=== PATIENT | female | born 1970 | race Caucasian/White ===

== ENCOUNTER → 2016-10-18 | Outpatient (CLI) | payer BC ==
[~2016-10-18] MED LIST: ERGO1CAP35 PO; LEVO137T3 PO
== END | disposition home or self-care (01) ==
LOC: C.PATH 08:53
PROVIDERS: ATTEND Obstetrics & Gynecology
DX: N63 Unspecified lump in breast (principal)

== ENCOUNTER → 2016-11-15 | Outpatient (CLI) | payer BC ==
--- NOTE | 2016-11-15 15:32 | MAMMOGRAPHY REPORT ---
ULTRASOUND OF RIGHT BREAST: 11/15/2016 CLINICAL HISTORY: The patient has a history of bilateral mastectomy with ASAEL flap as well as implan t reconstruction. The patient reports a new palpable lump in the right upper outer quadrant since . She underwent a fine-needle aspiration by the pathology department, the pathology showed n o malignant cells, and showed histiocytes and acellular debris which is nonspecific but could repres ent fat necrosis or cyst contents. The patient reports that the lump resolved after aspiration but then returned and is now even larger in size. COMPARISON: Comparison is made to exams dated: 09/09/2015 ultrasound, 03/09/2015 ultrasound, 05/05/2012 mammogram, 05/06/2013 mammogram, 05/02/2011 mammogram, and 05/01/2010 mammogram - [facility]. TECHNIQUE: Real-time targeted ultrasound of the right breast was performed. FINDINGS: Targeted ultrasound was performed of the area of the palpable lump pointed out by the patient, in th e right breast at approximately 11:00, 8 cm from the approximate prior location of the nipple based on the reconstructed breast. At the site of the palpable lump there is a round hypoechoic circumscr ibed 7 x 6 x 7 mm mass, as well as an adjacent smaller hypoechoic circumscribed round mass which tatiana sures 2 x 2 mm; these likely represent oil cysts. There is hyperechogenicity of the surrounding fat lobules. In the right breast at 11:00, 9 cm from the nipple, there is a round circumscribed anecho ic mass which measures 2 x 2 mm, likely representing an oil cyst, also with hyperechogenicity of the surrounding fat. Findings are benign and compatible with fat necrosis with multiple oil cysts. No suspicious solid masses are evident. IMPRESSION: ACR BI-RADS CATEGORY 2: BENIGN Findings compatible with fat necrosis with multiple oil cysts at the site of the palpable right uppe r outer quadrant lump. The largest oil cyst measures 7 mm in this region. There is no sonographic evidence of malignancy. Recommend clinical follow-up. The patient was verbally notified of the results. Gladys Yepez M.D. /:11/15/2016 13:46:38 Grounds Worker: Ayana FLORES(Lea)(Janel), [facility] letter sent: Normal 1/2 BI-RADS Code: ACR BI-RADS Category 2: Benign
== END | disposition home or self-care (01) ==
LOC: C.MAMM 12:48
PROVIDERS: ATTEND Obstetrics & Gynecology
DX: N64.1 Fat necrosis of breast (principal); N60.01 Solitary cyst of right breast; Z85.3 Personal history of malignant neoplasm of breast; Z90.13 Acquired absence of bilateral breasts and nipples; Z08 Encounter for follow-up examination after completed treatment for malignant neoplasm

== ENCOUNTER → 2017-09-24 | Outpatient (CLI) | payer BC | END | disposition home or self-care (01) | LOC: C.PAPS 11:26 | PROVIDERS: ATTEND Obstetrics & Gynecology | DX: Z01.419 Encounter for gynecological examination (general) (routine) without abnormal findings (principal) ==

== ENCOUNTER → 2017-09-27 | Outpatient (CLI) | payer BC ==
--- NOTE | 2017-09-27 15:34 | MAMMOGRAPHY REPORT ---
ULTRASOUND OF BOTH BREASTS: 09/27/2017 CLINICAL HISTORY: History of bilateral mastectomy with the ASAEL flap as well as implant reconstructio n. The patient reports a persistent palpable lump in the right upper outer quadrant. She also repor ts that her provider felt a new left breast lump during a physical exam. COMPARISON: Comparison is made to exams dated: 03/09/2015 ultrasound, 09/09/2015 ultrasound, 11/15/2016 u ltrasound, 05/06/2013 mammogram, 05/05/2012 mammogram, and 05/02/2011 mammogram - [facility]. TECHNIQUE: Real-time targeted ultrasound of both breasts was performed. FINDINGS: Real-time, high resolution targeted ultrasound was performed of the area of the persistent palpable lump pointed out by the patient, in the right reconstructed breast at approximately 11:00, 8 cm from the nipple. At the site of the palpable lump there is a round circumscribed hypoechoic mas s with posterior acoustic shadowing, measuring 6 x 6 x 6 mm. An adjacent round circumscribed hypoech oic 2 x 2 mm mass is also noted. Surrounding ill-defined hyperechoic tissue is seen. Both masses ar e not significantly changed compared to the November 2016 exam and are benign and compatible with oil cyst related to fat necrosis. Another round anechoic circumscribed benign appearing 4 x 4 mm mass i s seen within the right breast at 1:00, approximately 9 cm from the nipple, also consistent with a be nign oil cyst and stable compared to the September 2015 exam. Targeted ultrasound was performed of the new palpable lump pointed out by the patient, in the left re constructed breast at approximately 9:00, 8 cm from the nipple. At this site there is ill-defined mi xed echogenicity tissue which is hypoechoic centrally and hyperechoic peripherally, with total extent of the finding measuring 10 x 12 x 7 mm. Given the patient's history and given the mixed echogenici ty appearance on ultrasound, the finding likely represents fat necrosis, however, the finding is nons pecific on imaging and malignancy cannot entirely be excluded. Consider fine-needle aspiration for f urther evaluation. IMPRESSION: ACR BI-RADS CATEGORY 4: SUSPICIOUS - FOLLOW-UP RECOMMENDED 1. Two adjacent circumscribed masses in the right 11:00 breast at the site of the palpable lump, one measuring 6 mm and the other measuring 2 mm. The masses are stable compared to the November 2016 ex am and are benign and compatible with oil cysts related to fat necrosis. 2. Ill-defined mixed echogenicity tissue at the site of the new palpable lump in the left reconstruc oralia breast at 9:00. Given the patient's history and given the mixed echogenicity appearance on ultra sound, the finding likely represents fat necrosis, however, the finding is nonspecific on imaging and malignancy cannot entirely be excluded. Consider fine-needle aspiration by the pathology department for further evaluation. If this is not performed, then clinical or imaging follow-up should be perf ormed. A phone call was made to the physician's office to confirm faxed results were received. The patient was verbally notified of the results. Gladys Yepez M.D. ah/:09/27/2017 10:55:32 Attending Technologist: Curtis HURD)(Janel), [facility] [employer] Finisher Helper: Gladys Yepez MD, [facility] letter sent: Abnormal 4/5 BI-RADS Code: ACR BI-RADS Category 4: Suspicious
== END | disposition home or self-care (01) ==
LOC: C.MAMM 09:42
PROVIDERS: ATTEND Obstetrics & Gynecology
DX: N63.11 Unspecified lump in the right breast, upper outer quadrant (principal); Z90.11 Acquired absence of right breast and nipple; Z90.12 Acquired absence of left breast and nipple; N63.20 Unspecified lump in the left breast, unspecified quadrant

== ENCOUNTER → 2017-10-29 | Outpatient (CLI) | payer OTHER | END | disposition home or self-care (01) | LOC: C.MAMM 09:50 | PROVIDERS: ATTEND Nurse Practitioner Family | DX: M85.80 Other specified disorders of bone density and structure, unspecified site (principal) ==

== ENCOUNTER → 2018-01-31 | Outpatient (CLI) | payer OTHER ==
--- NOTE | 2018-01-31 16:38 | DIAGNOSTIC IMAGING REPORT ---
L VENOUS DOPP LOWER EXT UNILAT CLINICAL HISTORY: CALF PAIN pain. Edema. TECHNIQUE: Venous Doppler COMPARISON STUDY: None FINDINGS: Normal study IMPRESSION: Normal study The above report was generated using voice recognition software. It may contain grammatical, syntax or spelling errors. Electronically signed by: Aneesh Gutierrez M.D. 01/31/2018 4:37 PM Dictated Date/Time: 01/31/2018 4:37 PM
== END | disposition home or self-care (01) ==
LOC: C.ULTR 15:37
PROVIDERS: ATTEND Nurse Practitioner Family
DX: M79.605 Pain in left leg (principal)

== ENCOUNTER 2022-04-25 15:36 | Inpatient (IN) ==
--- NOTE | 2022-04-25 15:44 | ED Triage Note ---
Date of Service April 25, 2022 History of Present Illness This patient was briefly evaluated while in triage. An abbreviated physical exam was performed. This patient is a 52-year-old Female who presents to the ED for evaluation of daily panic attacks for the past 5 weeks. She has seen her PCP multiple times and was started on Sertraline and Ativan without relief. Physical Exam VITALS: Vitals are noted on the nurse's note and reviewed by myself. GENERAL: This is a 52-year-old female, anxious appearing and jittery. SKIN: The skin was without rashes. LUNGS: No increased work of breathing. NEURO: Patient was alert and oriented to person place and time. Initial orders for labs and / or imaging were placed and patient was placed in the waiting area until a bed is available. Please see further documentation for the full ED course.
--- NOTE | 2022-04-25 16:08 | Emergency Department Note ---
Impression & Plan Mood disorder, Anxiety ED Provider Note NAME: KYREE CLEMENTS AGE: 52 SEX: F : 1970 ARRIVES VIA: Walk-In INFORMANT: Patient ED PROVIDER(S): Jan Wilde DO CHIEF COMPLAINT: anxiety HPI: Patient is a 52-year-old female with a history of hypothyroidism, g eneralized anxiety disorder patch carcinoma of the nipple who presents to the ER for persistent panic attacks. This started on March 09 when she was getting ready to go to a family libertarian where there is a lot of family stressors. She eventually did not go but they have kindly continued throughout. She has been prescribed sertraline and Ativan but she does not like to take medications. When she does take the Ativan she does believe it helps out but it does make her tired. She notes that these panic attacks include racing thoughts as well as impending doom and pacing around the room. She does not get any chest pain or shortness of breath. No belly pain nausea vomiting or diarrhea. She does sometimes get paresthesias when she is very anxious. She denies any weakness or numbness in the arms or legs. No other exacerbating or remitting factors. She denies any auditory visual hallucinations. She has no passive or active suicidal thoughts. She notes she would never kill her self but she does want this to end and she wants to come up with a resolution or solution to this ROS: See above HPI for pertinent positives & negatives. A total of 10 systems reviewed and were otherwise negative. PAST MEDICAL HISTORY:See Below PAST SURGICAL HISTORY:See Below FAMILY HISTORY:See Below SOCIAL HISTORY:See Below HOME MEDICATIONS:See Below ALLERGIES:See Below VITALS:See Below PHYSICAL EXAMINATION: GENERAL: Sitting up in bed, alert, well appearing, well nourished, no distress, non-toxic EYE EXAM: normal conjunctiva. OROPHARYNX: no exudate, no erythema, lips, buccal mucosa, and tongue normal and mucous membranes are moist LUNGS: Clear to auscultation. Normal chest wall mechanics HEART: no murmurs, S1 normal and S2 normal ABDOMEN: abdomen soft, non-tender, normo-active bowel sounds, no masses, no rebound or guarding. UPPER EXTREMITIES: upper extremities are grossly normal. LOWER EXTREMITIES: No pitting edema. NEURO EXAM: Normal sensorium, cranial nerves II-XII grossly intact, normal speech, no gross weakness of arms, no gross weakness of legs. PSYCH: Denies any suicidal or homicidal ideations. No auditory visual hallucinations. MEDICAL DECISION MAKING: Patient is a 52-year-old female who presents the ER for the above-stated complaint. Blood work was obtained and showed no significant leukocytosis or anemia. BMP with LFTs bilirubin was unremarkable. TSH was slightly low and free T4 slightly high. 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 Can follow-up with PCP. UA was clean. Tox was negative. Alcohol negative. COVID-negative. Patient was felt to be unsafe to go home by family and she was eventually agreeable to coming in on a 201. She was given dose of Ativan while in the ER for anxiety. She was seen and evaluated by Lacey and was eventually accepted to 3 S. on a 201. Start Time: 1630 Reason: Patient with PMHx of anxiety underwent ED Observation for anxiety. Fam Hx: No pertinent family history SocHx: See Below Assessment(s): As described above in MDM Summary: As described above in MDM Disposition: Patient was admitted on 04/25/2022 at 11 PM. Total Time: 7 hours Triage Nursing notes reviewed. Limited review of prior medical records performed Vital Signs: reviewed and remarkable for no significant abnormalities Differential diagnosis: Mood disorder, infection, hypoglycemia, electrolyte abnormalities, cardiac sources, intracerebral event, toxicologic, trauma, neurologic, as well as other pathologies. ER treatment provided: See below Diagnostics interpreted by me: ECG: none Laboratory studies: As stated above and show below. Imaging studies: See below Consultation(s): none Procedures: none Critical Care: None Past Med/Surg History Medical History (Updated 04/25/22 @ 23:31 by Jan Wilde DO) Bilateral wrist pain Contusion of right hip Contusion of right knee Hernia of abdominal wall Left shoulder pain Recurrent UTI (urinary tract infection) Status post hysteroscopy Uterine leiomyoma Wound dehiscence, surgical Surgical History H/O bilateral mastectomy H/O lumpectomy H/O: hysterectomy 2019 History of incisional hernia repair 2019 History of laparoscopy History of salpingo-oophorectomy S/P dilation and curettage S/P tonsillectomy and adenoidectomy Family History Sister Diabetes Mother Hypertension Aunt Breast cancer Other Colorectal cancer Heart disease Social History Smoking Status: Never smoker Second Hand Exposure: No; Hx Alcohol Use: No Hx Substance Use: No Preferred Language: Nepali Communication Ability: Effective Visual Impairment: No Limitations 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 marital status: Current Living Situation: Spouse and Family current occupational status: employed Feels Safe at Home: Yes Childhood Exposure to Second-Hand Smoke: No Dental Care, Regularly: Yes Physical Activity Frequency: 1-2 Times per Week Seatbelt Use: always Sunscreen Use: Yes Assistive Devices: Glasses Allergies Allergies Allergy/AdvReac Type Severity Reaction Status Date / Time levofloxacin Allergy Unknown Rash Verified 04/20/22 11:00 diphenhydramine AdvReac Unknown ANXIOUS Verified 04/20/22 11:00 Home Meds Home Medications Medication Instructions Recorded Confirmed cholecalciferol (vitamin D3) 125 125 mcg PO DAILY 01/25/22 04/20/22 mcg (5,000 unit) capsule Previous Rx's Medication Instructions Recorded tolterodine 2 mg capsule,extended 2 mg PO BID #180 caps 11/21/21 release 24 hr fluocinonide 0.05 % topical cream 1 applic topical BID #30 grams 02/16/22 levothyroxine 112 mcg tablet 112 mcg PO DAILY #90 tabs 03/12/22 (Synthroid) sertraline 50 mg tablet 50 mg PO DAILY #30 tabs 04/10/22 hydroxyzine HCl 10 mg tablet 10 mg PO TID PRN anxiety #10 tabs 04/20/22 lorazepam 0.5 mg tablet 0.5 mg PO DAILY PRN anxiety #20 04/20/22 tabs Results & Data (ED) Vital Signs Vital Signs - 24 hr 04/25/22 15:39 04/25/22 19:10 Temperature 36.8 C 36.9 C Temperature Source Temporal Artery Scan Oral Pulse Rate 124 H Pulse Rate [Right Finger] 102 H Respiratory Rate 18 22 Respiratory Effort / Characteristics Non-Labored Spontaneous Non-Labored Spontaneous Respiratory Depth Normal Normal Respiratory Pattern Regular Regular Blood Pressure 136/79 Blood Pressure [Left Arm] 138/97 Blood Pressure Mean 98 Blood Pressure Mean [Left Arm] 110 Blood Pressure Position Sitting Pulse Oximetry 95 98 Oxygen Delivery Method Room Air Sepsis Recent Fever Within 48 Hours No Sepsis New/Unexplained Change in Mental Status No Sepsis Action Taken by Nursing No Action Required Laboratory Data Result diagrams: 04/25/22 16:10 04/25/22 16:10 Lab Results 04/25/22 04/25/22 04/25/22 Range/Units 16:10 16:10 16:10 WBC 6.90 (4.8-10.8) K/ul RBC 4.55 (3.93-5.22) M/uL Hgb 14.4 (12.0-16.0) g/dl Hct 41.4 (34.1-44.9) % MCV 91.0 (80.0-100.0) fL MCH 31.6 (25.0-34.0) pg MCHC 34.8 (32.0-36.0) g/dL RDW Std Deviation 38.5 (36.4-46.3) fL RDW Coeff of Doug 11.7 (11.5-14.5) % Plt Count 272 (130-400) K/uL MPV 10.5 (9.4-12.3) fL Immature Gran % (Auto) 0.1 % Neut % (Auto) 62.6 % Lymph % (Auto) 30.1 % [place] % (Auto) 6.2 % Eos % (Auto) 0.3 % Baso % (Auto) 0.7 % Neut # (Auto) 4.31 (1.4-6.5) K/uL Lymph # (Auto) 2.08 (1.2-3.4) K/uL [place] # (Auto) 0.43 (0.24-0.82) K/uL Eos # (Auto) 0.02 (0-0.50) K/uL Baso # (Auto) 0.05 (0-0.2) K/uL Immature Gran # (Auto) 0.01 (0.00-0.02) K/uL Sodium 139 (136-145) mmol/L Potassium 3.5 (3.5-5.1) mmol/L Chloride 106 (98-107) mmol/L Carbon Dioxide 25 (21-32) mmol/L Anion Gap 8 (3-11) BUN 10 (6-23) mg/dl Creatinine 0.65 (0.6-1.2) mg/dl Est Cr Clr Drug Dosing 90.1 ml/min Est GFR ( Amer) 117.5 ml/min Est GFR (Non-Af Amer) 101.4 ml/min BUN/Creatinine Ratio 15.4 (10-20) Glucose 108 H (70-99(Fasting)) mg/dl Calcium 9.6 (8.5-10.1) mg/dl Total Bilirubin 0.5 (0.2-1.0) mg/dl AST 14 (13-39) U/L ALT 10 (7-52) U/L Alkaline Phosphatase 66 (34-104) U/L Total Protein 7.1 (6.0-8.3) gm/dl Albumin 4.4 (3.4-5.0) gm/dl Globulin 2.7 (2.5-4.0) gm/dl Albumin/Globulin Ratio 1.6 (0.9-2) TSH < 0.010 L (0.300-4.500) uIu/ml Free T4 1.87 H (0.61-1.60) ng/dl Urine Color Urine Appearance (Clear) Urine pH (4.5-7.5) Ur Specific [place] (1.000-1.030) Urine Protein (Negative) Urine Glucose (UA) (Negative) Urine Ketones (Negative) Urine Blood (Negative) Urine Nitrite (Negative) Urine Bilirubin (Negative) Urine Urobilinogen (Negative) Ur Leukocyte Esterase (Negative) Salicylates (3.0-30) mg/dl Urine Opiates Screen (Neg) Ur Methadone, Qual (Neg) Acetaminophen (10-30) ug/ml Urine Barbiturates (Neg) Ur Phencyclidine (PCP) (Neg) U Amphetamin/Meth Scrn (Neg) MDMA (Ecstasy) Screen (Neg) U Benzodiazepines Scrn (Neg) Ur Cocaine Metabolite (Neg) U Marijuana (THC) Screen (Neg) Ethyl Alcohol mg/dL (<10.0) mg/dl SARS-CoV-2, RNA, NAAT (NEGATIVE) 04/25/22 04/25/22 04/25/22 Range/Units 16:10 16:10 16:27 WBC (4.8-10.8) K/ul RBC (3.93-5.22) M/uL Hgb (12.0-16.0) g/dl Hct (34.1-44.9) % MCV (80.0-100.0) fL MCH (25.0-34.0) pg MCHC (32.0-36.0) g/dL RDW Std Deviation (36.4-46.3) fL RDW Coeff of Doug (11.5-14.5) % Plt Count (130-400) K/uL MPV (9.4-12.3) fL Immature Gran % (Auto) % Neut % (Auto) % Lymph % (Auto) % [place] % (Auto) % Eos % (Auto) % Baso % (Auto) % Neut # (Auto) (1.4-6.5) K/uL Lymph # (Auto) (1.2-3.4) K/uL [place] # (Auto) (0.24-0.82) K/uL Eos # (Auto) (0-0.50) K/uL Baso # (Auto) (0-0.2) K/uL Immature Gran # (Auto) (0.00-0.02) K/uL Sodium (136-145) mmol/L Potassium (3.5-5.1) mmol/L Chloride (98-107) mmol/L Carbon Dioxide (21-32) mmol/L Anion Gap (3-11) BUN (6-23) mg/dl Creatinine (0.6-1.2) mg/dl Est Cr Clr Drug Dosing ml/min Est GFR ( Amer) ml/min Est GFR (Non-Af Amer) ml/min BUN/Creatinine Ratio (10-20) Glucose (70-99(Fasting)) mg/dl Calcium (8.5-10.1) mg/dl Total Bilirubin (0.2-1.0) mg/dl AST (13-39) U/L ALT (7-52) U/L Alkaline Phosphatase (34-104) U/L Total Protein (6.0-8.3) gm/dl Albumin (3.4-5.0) gm/dl Globulin (2.5-4.0) gm/dl Albumin/Globulin Ratio (0.9-2) TSH (0.300-4.500) uIu/ml Free T4 (0.61-1.60) ng/dl Urine Color Urine Appearance (Clear) Urine pH (4.5-7.5) Ur Specific [place] (1.000-1.030) Urine Protein (Negative) Urine Glucose (UA) (Negative) Urine Ketones (Negative) Urine Blood (Negative) Urine Nitrite (Negative) Urine Bilirubin (Negative) Urine Urobilinogen (Negative) Ur Leukocyte Esterase (Negative) Salicylates < 3.0 L (3.0-30) mg/dl Urine Opiates Screen (Neg) Ur Methadone, Qual (Neg) Acetaminophen < 3 L (10-30) ug/ml Urine Barbiturates (Neg) Ur Phencyclidine (PCP) (Neg) U Amphetamin/Meth Scrn (Neg) MDMA (Ecstasy) Screen (Neg) U Benzodiazepines Scrn (Neg) Ur Cocaine Metabolite (Neg) U Marijuana (THC) Screen (Neg) Ethyl Alcohol mg/dL < 10.0 (<10.0) mg/dl SARS-CoV-2, RNA, NAAT NEGATIVE (NEGATIVE) 04/25/22 04/25/22 Range/Units 17:00 17:02 WBC (4.8-10.8) K/ul RBC (3.93-5.22) M/uL Hgb (12.0-16.0) g/dl Hct (34.1-44.9) % MCV (80.0-100.0) fL MCH (25.0-34.0) pg MCHC (32.0-36.0) g/dL RDW Std Deviation (36.4-46.3) fL RDW Coeff of Doug (11.5-14.5) % Plt Count (130-400) K/uL MPV (9.4-12.3) fL Immature Gran % (Auto) % Neut % (Auto) % Lymph % (Auto) % [place] % (Auto) % Eos % (Auto) % Baso % (Auto) % Neut # (Auto) (1.4-6.5) K/uL Lymph # (Auto) (1.2-3.4) K/uL [place] # (Auto) (0.24-0.82) K/uL Eos # (Auto) (0-0.50) K/uL Baso # (Auto) (0-0.2) K/uL Immature Gran # (Auto) (0.00-0.02) K/uL Sodium (136-145) mmol/L Potassium (3.5-5.1) mmol/L Chloride (98-107) mmol/L Carbon Dioxide (21-32) mmol/L Anion Gap (3-11) BUN (6-23) mg/dl Creatinine (0.6-1.2) mg/dl Est Cr Clr Drug Dosing ml/min Est GFR ( Amer) ml/min Est GFR (Non-Af Amer) ml/min BUN/Creatinine Ratio (10-20) Glucose (70-99(Fasting)) mg/dl Calcium (8.5-10.1) mg/dl Total Bilirubin (0.2-1.0) mg/dl AST (13-39) U/L ALT (7-52) U/L Alkaline Phosphatase (34-104) U/L Total Protein (6.0-8.3) gm/dl Albumin (3.4-5.0) gm/dl Globulin (2.5-4.0) gm/dl Albumin/Globulin Ratio (0.9-2) TSH (0.300-4.500) uIu/ml Free T4 (0.61-1.60) ng/dl Urine Color Yellow Urine Appearance Clear (Clear) Urine pH 6.0 (4.5-7.5) Ur Specific [place] 1.020 (1.000-1.030) Urine Protein Negative (Negative) Urine Glucose (UA) Negative (Negative) Urine Ketones Negative (Negative) Urine Blood Negative (Negative) Urine Nitrite Negative (Negative) Urine Bilirubin Negative (Negative) Urine Urobilinogen Negative (Negative) Ur Leukocyte Esterase Negative (Negative) Salicylates (3.0-30) mg/dl Urine Opiates Screen Neg (Neg) Ur Methadone, Qual Neg (Neg) Acetaminophen (10-30) ug/ml Urine Barbiturates Neg (Neg) Ur Phencyclidine (PCP) Neg (Neg) U Amphetamin/Meth Scrn Neg (Neg) MDMA (Ecstasy) Screen Neg (Neg) U Benzodiazepines Scrn Neg (Neg) Ur Cocaine Metabolite Neg (Neg) U Marijuana (THC) Screen Neg (Neg) Ethyl Alcohol mg/dL (<10.0) mg/dl SARS-CoV-2, RNA, NAAT (NEGATIVE) Administered Medications Discontinued Medications Lorazepam (Lorazepam 1 Mg Tab) 1 mg SL NOW STA Stop: 07/20/22 20:35 Last Admin: 04/25/22 20:43 Dose: 1 mg Documented By: BS Discharge Plan Visit Data Chief Complaint: Mental Health Evaluation Stated Complaint: PANIC ATTACKS ED Provider: Jan Wilde Discharge Problem: Mood disorder, Anxiety Patient Disposition: Admitted As Inpatient Discharge Instructions Interventions: ED Discharge Assessment Last Done: 04/25/22 22:52
[2022-04-25 16:27] LABS: Basophils # (auto) 0.05 K/uL (0-0.2); Basophils % (auto) 0.7 %; Eosinophils # (auto) 0.02 K/uL (0-0.50); Eosinophils % (auto) 0.3 %; Hematocrit (blood only) 41.4 % (34.1-44.9); Hemoglobin 14.4 g/dl (12.0-16.0); Immature Granulocytes # (auto) 0.01 K/uL (0.00-0.02); Immature Granulocytes % (auto) 0.1 %; Lymphocytes # (auto) 2.08 K/uL (1.2-3.4); Lymphocytes % (auto) 30.1 %; Mean Corpuscular Hemoglobin 31.6 pg (25.0-34.0); Mean Corpuscular Hgb Conc 34.8 g/dL (32.0-36.0); Mean Platelet Volume 10.5 fL (9.4-12.3); Monocytes # (auto) 0.43 K/uL (0.24-0.82); Monocytes % (auto) 6.2 %; Neutrophils # (auto) 4.31 K/uL (1.4-6.5); Neutrophils % (auto) 62.6 %; Platelet Count 272 K/uL (130-400); RDW Coefficient of Variation 11.7 % (11.5-14.5); RDW Standard Deviation 38.5 fL (36.4-46.3); Red Blood Count 4.55 M/uL (3.93-5.22)
[2022-04-25 16:51] LABS: Albumin Globulin Ratio 1.6 (0.9-2); Albumin Level 4.4 gm/dl (3.4-5.0); BUN Creatinine Ratio 15.4 (10-20); Bilirubin,Total 0.5 mg/dl (0.2-1.0); Calcium 9.6 mg/dl (8.5-10.1); Creatinine Clr Calc Pharmacy 90.1 ml/min; Est GFR (African American) 117.5 ml/min; Est GFR (Non-African American) 101.4 ml/min; Globulin 2.7 gm/dl (2.5-4.0); Potassium 3.5 mmol/L (3.5-5.1); Total Protein 7.1 gm/dl (6.0-8.3)
[2022-04-25 17:03] LABS: Acetaminophen < 3 ug/ml (10-30); Salicylate < 3.0 mg/dl (3.0-30)
[2022-04-25 17:08] LABS: Appearance Urine Clear (Clear); Bilirubin Urine Negative (Negative); Blood Urine Negative (Negative); Color Urine Yellow; Glucose Urine UA Negative (Negative); Ketones Urine Negative (Negative); Leukocyte Esterase Urine Negative (Negative); Nitrite Urine Negative (Negative); Protein Urine Negative (Negative); Urobilinogen Urine Negative (Negative)
[2022-04-25 17:22] LABS: Thyroid Stimulating Hormone < 0.010 uIu/ml (0.300-4.500)
[2022-04-25 18:00] LABS: Amphetamines+Metham, Urine Neg (Neg); Barbiturates, Urine Neg (Neg); Benzodiazepine, Urine Neg (Neg); Cocaine, Urine Neg (Neg); MDMA (Ecstacy), Urine Neg (Neg); Methadone, Urine Neg (Neg); Opiate, Urine Neg (Neg); Phencyclidine, Urine Neg (Neg)
[2022-04-25] MEDS ORDERED: LORazepam 1 MG TAB SL STA (20:34)
[2022-04-25 21:14] LABS: T4 Free Thyroxine 1.87 ng/dl (0.61-1.60)
[2022-04-25] MEDS ORDERED: ALUMINUM/MAGNESIUM SUSP 30 ML UDC PO PRN (22:54)
[2022-04-25] MEDS ORDERED: MAGNESIUM HYDROXIDE SUSP 30 ML UDC PO PRN (22:54)
[2022-04-25] MEDS ORDERED: hydrOXYzine HCl 25 MG TAB PO PRN (22:54)
[2022-04-25] MEDS ORDERED: BISMUTH SUBSALICYLATE LIQD 236 ML PO PRN (22:54)
[2022-04-25] MEDS ORDERED: ACETAMINOPHEN 325 MG TAB PO PRN (22:54)
[2022-04-25] MEDS ORDERED: SODIUM CHLORIDE 0.65% NA SOLN 45 ML (OCEAN) PRN (22:54)
--- NOTE | 2022-04-26 07:56 | History & Physical ---
Date of Service April 26, 2022 Impression / Recommendations Impression 52 yo female with hx of severe anxiety with obsessive rituals and body dysmorphia presents with 5 week hx of worsening anxiety, made some suicidal statements in the context of a panic attack that she now retracts. She appears to have persistent iatrogenic hyperthyroidism that may be a contributing factor but generally reports functioning well at higher dose of thyroid medication for "many years". (1) BOLA (generalized anxiety disorder): (2) Depressive disorder, not elsewhere classified: Plan The patient was admitted to the [facility] ([facility] health unit) on q15 min checks (behavioral with suicide precautions) for safety. The patient will participate in group, recreational, and milieu therapies and will be offered additional individual and family sessions as clinically appropriate. 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 Suicide Risk Level Suicide Risk Level: Moderate (q15 min suicide checks) (currently denies, good impulse control, no prior attempts) Risk Factors Assessment : Yes Do You Have Access To A Gun?: No Health Problems: Yes Mental Health Diagnoses: Yes Substance Use Disorders: No Previous Attempt: No Family History of Suicide: Yes (attempts) Previous Psychiatric Hospitalization: No Protective Factors Assessment : Yes Responsible for Young Children: Yes Employed: Yes (remote worker) Stable Relationships: Yes Psychiatric History Identifying Data KYREE CLEMENTS is a 52-year-old F from [place], has a long history of anxiety but no prior psychiatric admissions, admitted on 04/25/22 22:54 on a 201 voluntary commitment for inability to function at home and passive suicidal statements. Chief Complaint "I feel like this was a mistake, I just got overwhelmed, I didn't want to hurt myself." signed a 72 hour notice soon after admission last pm. History of Present Illness Patient first and foremost reports "control issues" and having a rather regim ented routine in the am, particularly with regards to her make up routine which she has had since childhood to cover a "birthmark" that she can't even elaborate on because creates so much distress for her. She has concerns about availability of mirrors here. She also compulsively picks at her cuticles/nails and follows with dermatology for this and other excoriation disorder (picking with tweezers ). She feels her life has been "off track" ever since the pandemic when she, her , and 4 children had to work/study from home. She liked her parttime position but left 1 yr ago due to stress and now feels more socially isolated. She has feel more panic attacks and poorer sleep in the past month. Seems counterintuitive but her anxiety has gotten worse over the course of her thyroid medication being adjusted down due to overcorrection since at least Oct. The patient's reported in the ED that she had been wandering around the house stating that she wanted to "end it" and/or that she was a burden at least 37 times after her kids left for a gnosticism retreat. She had argued somewhat with her 16 yo daughter over her outfit and in general they "butt heads" more than with her other children as this daughter was adopted into the family at age 5 1/2 and "came with a strong personality." The couple has a 24 yo biological son and three 16 yo adopted children per chart. She denies making suicidal statements, "I just couldn't stand how I was feeling." She also denies hiding her medication from her as she was "just cleaning my computer desk and didn't want it out for the kids." She reports Ativan is helpful but she avoids taking it as "it's controlled" and also generally has to sleep/nap after. She has been hesitant to take Vistaril as had an anaphylactic reaction to a chemotherapeutic agent in the past during which continued to react with IV benadryl. She has been reassured by her primary care office as well as family/pharmacist. Past Psychiatric History Previous Psych History: I have "OCD" and "dysmorphia" Current Psychiatric Diagnosis: MDD Outpatient Services: has an intake scheduled for [facility] Previous Psych Admissions: none Do You Have Access To A Gun?: No History of Previous Suicide Attempt: No Past Medication Trials: Lexapro and Buspar (ineffective), Zoloft since early April feels that maybe she's having some blurry vision otherwise tolerates well. Allergies Allergy/AdvReac Type Severity Reaction Status Date / Time levofloxacin Allergy Unknown Rash Verified 04/20/22 11:00 diphenhydramine AdvReac Unknown ANXIOUS Verified 04/20/22 11:00 Home Medications Medication Instructions Recorded Confirmed Type tolterodine 2 mg capsule,extended 2 mg PO BID #180 caps 11/21/21 04/20/22 Rx release 24 hr cholecalciferol (vitamin D3) 125 125 mcg PO DAILY 01/25/22 04/20/22 History mcg (5,000 unit) capsule fluocinonide 0.05 % topical cream 1 applic topical BID #30 grams 02/16/22 04/20/22 Rx levothyroxine 112 mcg tablet 112 mcg PO DAILY #90 tabs 03/12/22 04/20/22 Rx (Synthroid) sertraline 50 mg tablet 50 mg PO DAILY #30 tabs 04/10/22 04/20/22 Rx hydroxyzine HCl 10 mg tablet 10 mg PO TID PRN anxiety #10 tabs 04/20/22 04/20/22 Rx lorazepam 0.5 mg tablet 0.5 mg PO DAILY PRN anxiety #20 04/20/22 04/20/22 Rx tabs Family History Family History of: Depression, Alcoholism/Drug Abuse, Suicide Attempts and Bipolar (brother) Alcohol History Hx of Alcohol Use Over the Past 12 Months: Yes (1 wine cooler in 2 months) AUDIT Total Score: 1 Smoking Use Have You Smoked or Used Tobacco Products in the Last 30 Days: No Smoking Status: Never smoker Smoking packs per day: 0 Substance History Hx of Prescription Med Misuse Over the Past 12 Months: No Hx of Over the Counter Med Misuse Over the Past 12 Months: No Hx of Inhalent Misuse Over the Past 12 Months: No Hx of Organic Substance Use Over the Past 12 Months: No Hx of Illegal Substances/Street Drug Use Over Past 12 Months: No Problems as a Result of Past Substance Use: None Identified Personal History Living Arrangements: Home Childhood: raised in [place] Highest Grade Completed: College Employment Status: Unemployed Marital Status: (28+ years) Number Of Children: 4 Beliefs That Will Affect Care: None Current Legal Problems: No Hx Traumatic Life Events: No Patient History Medical History (Updated 04/26/22 @ 15:05 by Lorna Borden MD) Bilateral wrist pain BRCA negative Contusion of right hip Contusion of right knee Hernia of abdominal wall Left shoulder pain Paget's carcinoma of the nipple Recurrent UTI (urinary tract infection) Status post hysteroscopy Uterine leiomyoma Wound dehiscence, surgical Surgical History H/O bilateral mastectomy H/O lumpectomy H/O: hysterectomy 2019 History of incisional hernia repair 2019 History of laparoscopy History of salpingo-oophorectomy S/P dilation and curettage S/P tonsillectomy and adenoidectomy Family History Sister Diabetes Mother Hypertension Aunt Breast cancer Other Colorectal cancer Heart disease Social History Smoking Status: Never smoker Second Hand Exposure: No; Hx Alcohol Use: No Hx Substance Use: No Preferred Language: Spanish Communication Ability: Effective Visual Impairment: No Limitations Hearing Ability: Normal Palliative Medicine Physician Required: No Beliefs That Will Affect Care: None marital status: Current Living Situation: Spouse and Family current occupational status: employed Feels Safe at Home: Yes Childhood Exposure to Second-Hand Smoke: No Dental Care, Regularly: Yes Physical Activity Frequency: 1-2 Times per Week Seatbelt Use: always Sunscreen Use: Yes Assistive Devices: None Review of Systems Review of Systems: All systems reviewed & are unremarkable except as noted in HPI & below Physical Exam Psychiatric: Orientation: alert and oriented x 3 Apperance: appropriately dressed and appropriately groomed Eye Contact: good eye contact Motor Behavior: no abnormal motor movements Speech: normal rate/rhythm/volume of speech Affect: + depressed affect Mood: + depressed mood and + anxious mood Thought Process: + perseveration Thought Content: reality based without delusions Suicidal Thoughts: denies suicidal thoughts Homicidal Thoughts: denies homicidal thoughts Hallucinations: no auditory hallucinations and no visual hallucinations Cognition: attention grossly intact and language grossly intact Estimated Intelligence: consistent with education level Insight: + limited insight Judgement: + limited judgement Vital Signs (Past 24 Hours): Last Vital Signs Temp 37 C 04/26/22 06:39 Pulse 101 H 04/26/22 06:40 Resp 18 04/26/22 06:39 BP 122/63 04/26/22 06:40 Pulse Ox 97 04/25/22 23:43 O2 Del Method 04/25/22 23:43 Exam Statement: A physical exam was performed in the ED by Dr. Wilde for the purposes of medical clearance. I accept that physical as correct and adequate for the purposes of the inpatient physical exam. Results & Data ([facility]) Laboratory Results Laboratory Results - last 24 hr 04/25/22 04/25/22 04/25/22 16:10 16:10 16:10 WBC 6.90 RBC 4.55 Hgb 14.4 Hct 41.4 MCV 91.0 MCH 31.6 MCHC 34.8 RDW Std Deviation 38.5 RDW Coeff of Doug 11.7 Plt Count 272 MPV 10.5 Immature Gran % (Auto) 0.1 Neut % (Auto) 62.6 Lymph % (Auto) 30.1 [place] % (Auto) 6.2 Eos % (Auto) 0.3 Baso % (Auto) 0.7 Neut # (Auto) 4.31 Lymph # (Auto) 2.08 [place] # (Auto) 0.43 Eos # (Auto) 0.02 Baso # (Auto) 0.05 Immature Gran # (Auto) 0.01 Sodium 139 Potassium 3.5 Chloride 106 Carbon Dioxide 25 Anion Gap 8 BUN 10 Creatinine 0.65 Est Cr Clr Drug Dosing 90.1 Est GFR ( Amer) 117.5 Est GFR (Non-Af Amer) 101.4 BUN/Creatinine Ratio 15.4 Glucose 108 H Calcium 9.6 Total Bilirubin 0.5 AST 14 ALT 10 Alkaline Phosphatase 66 Total Protein 7.1 Albumin 4.4 Globulin 2.7 Albumin/Globulin Ratio 1.6 TSH < 0.010 L Free T4 1.87 H Urine Color Urine Appearance Urine pH Ur Specific [place] Urine Protein Urine Glucose (UA) Urine Ketones Urine Blood Urine Nitrite Urine Bilirubin Urine Urobilinogen Ur Leukocyte Esterase Salicylates Urine Opiates Screen Ur Methadone, Qual Acetaminophen Urine Barbiturates Ur Phencyclidine (PCP) U Amphetamin/Meth Scrn MDMA (Ecstasy) Screen U Benzodiazepines Scrn Ur Cocaine Metabolite U Marijuana (THC) Screen Ethyl Alcohol mg/dL SARS-CoV-2, RNA, NAAT 04/25/22 04/25/22 04/25/22 16:10 16:10 16:27 WBC RBC Hgb Hct MCV MCH MCHC RDW Std Deviation RDW Coeff of Doug Plt Count MPV Immature Gran % (Auto) Neut % (Auto) Lymph % (Auto) [place] % (Auto) Eos % (Auto) Baso % (Auto) Neut # (Auto) Lymph # (Auto) [place] # (Auto) Eos # (Auto) Baso # (Auto) Immature Gran # (Auto) Sodium Potassium Chloride Carbon Dioxide Anion Gap BUN Creatinine Est Cr Clr Drug Dosing Est GFR ( Amer) Est GFR (Non-Af Amer) BUN/Creatinine Ratio Glucose Calcium Total Bilirubin AST ALT Alkaline Phosphatase Total Protein Albumin Globulin Albumin/Globulin Ratio TSH Free T4 Urine Color Urine Appearance Urine pH Ur Specific [place] Urine Protein Urine Glucose (UA) Urine Ketones Urine Blood Urine Nitrite Urine Bilirubin Urine Urobilinogen Ur Leukocyte Esterase Salicylates < 3.0 L Urine Opiates Screen Ur Methadone, Qual Acetaminophen < 3 L Urine Barbiturates Ur Phencyclidine (PCP) U Amphetamin/Meth Scrn MDMA (Ecstasy) Screen U Benzodiazepines Scrn Ur Cocaine Metabolite U Marijuana (THC) Screen Ethyl Alcohol mg/dL < 10.0 SARS-CoV-2, RNA, NAAT NEGATIVE 04/25/22 04/25/22 17:00 17:02 WBC RBC Hgb Hct MCV MCH MCHC RDW Std Deviation RDW Coeff of Doug Plt Count MPV Immature Gran % (Auto) Neut % (Auto) Lymph % (Auto) [place] % (Auto) Eos % (Auto) Baso % (Auto) Neut # (Auto) Lymph # (Auto) [place] # (Auto) Eos # (Auto) Baso # (Auto) Immature Gran # (Auto) Sodium Potassium Chloride Carbon Dioxide Anion Gap BUN Creatinine Est Cr Clr Drug Dosing Est GFR ( Amer) Est GFR (Non-Af Amer) BUN/Creatinine Ratio Glucose Calcium Total Bilirubin AST ALT Alkaline Phosphatase Total Protein Albumin Globulin Albumin/Globulin Ratio TSH Free T4 Urine Color Yellow Urine Appearance Clear Urine pH 6.0 Ur Specific [place] 1.020 Urine Protein Negative Urine Glucose (UA) Negative Urine Ketones Negative Urine Blood Negative Urine Nitrite Negative Urine Bilirubin Negative Urine Urobilinogen Negative Ur Leukocyte Esterase Negative Salicylates Urine Opiates Screen Neg Ur Methadone, Qual Neg Acetaminophen Urine Barbiturates Neg Ur Phencyclidine (PCP) Neg U Amphetamin/Meth Scrn Neg MDMA (Ecstasy) Screen Neg U Benzodiazepines Scrn Neg Ur Cocaine Metabolite Neg U Marijuana (THC) Screen Neg Ethyl Alcohol mg/dL SARS-CoV-2, RNA, NAAT Current Inpatient Medications Current Inpatient Medications: Current Inpatient Medications Acetaminophen (Acetaminophen 325 Mg Tab) 650 mg PO Q4H PRN PRN Reason: Headache or Minor Fever Stop: 05/25/22 22:53 Al Hydrox/Mg Hydrox/Simethicone (Aluminum/Magnesium Susp 30 Ml Udc) 30 ml PO Q4H PRN PRN Reason: GI Upset Stop: 05/25/22 22:53 Bismuth Subsalicylate (Bismuth Subsalicylate Liqd 236 Ml) 15 ml PO PRN PRN PRN Reason: Loose Stool Stop: 05/25/22 22:53 Hydroxyzine HCl (Hydroxyzine Hcl 25 Mg Tab) 10 mg PO Q4H PRN PRN Reason: Anxiety Stop: 05/25/22 22:53 Levothyroxine Sodium (Levothyroxine Sodium 112 Mcg Tablet) 112 mcg PO DAILYBB MIGUEL Stop: 05/26/22 07:59 Magnesium Hydroxide (Magnesium Hydroxide Susp 30 Ml Udc) 30 ml PO DAILY PRN PRN Reason: Constipation Stop: 05/25/22 22:53 Sertraline HCl (Sertraline Hcl 50 Mg Tablet) 50 mg PO QAM [facility] Stop: 05/26/22 08:59 Sodium Chloride (Sodium Chloride 0.65% Na Soln 45 Ml ([place])) 1 - 2 sprays NA PRN PRN PRN Reason: Nasal Dryness/Congestion Stop: 05/25/22 22:53 Tolterodine Tartrate (Tolterodine Tartrate La 2 Mg Capcr) 2 mg PO QAM MIGUEL Stop: 05/26/22 08:59
[2022-04-26] MEDS ORDERED: LEVOTHYROXINE SODIUM 112 MCG TABLET PO SCH (08:00)
[2022-04-26] MEDS ORDERED: TOLTERODINE TARTRATE LA 2 MG CAPCR PO SCH ×3 (09:00→22:00)
[2022-04-26] MEDS ORDERED: SERTRALINE HCL 50 MG TABLET PO SCH (09:00)
[2022-04-26] MEDS ORDERED: SERTRALINE HCL 50 MG TABLET PO ONE (11:51)
[2022-04-26] MEDS ORDERED: LORazepam 1 MG TAB PO STA (22:45)
[2022-04-27] MEDS ORDERED: LEVOTHYROXINE SODIUM 100 MCG TABLET PO SCH (08:00)
[2022-04-27] MEDS ORDERED: SERTRALINE HCL 100 MG TABLET PO SCH (09:00)
--- NOTE | 2022-04-27 14:55 | Discharge Summary ---
Date of Service April 27, 2022 History of Present Illness Patient first and foremost reports "control issues" and having a rather regimented routine in the am, particularly with regards to her make up routine which she has had since childhood to cover a "birthmark" that she can't even elaborate on because creates so much distress for her. She has concerns about availability of mirrors here. 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 She feels her life has been "off track" ever since the pandemic when she, her , and 4 children had to work/study from home. She liked her parttime position but left 1 yr ago due to stress and now feels more socially isolated. She has feel more panic attacks and poorer sleep in the past month. Seems counterintuitive but her anxiety has gotten worse over the course of her thyroid medication being adjusted down due to overcorrection since at least Oct. The patient's reported in the ED that she had been wandering around the house stating that she wanted to "end it" and/or that she was a burden at least 37 times after her kids left for a pentecostalism retreat. She had argued somewhat with her 16 yo daughter over her outfit and in general they "butt heads" more than with her other children as this daughter was adopted into the family at age 5 1/2 and "came with a strong personality." The couple has a 24 yo biological son and three 16 yo adopted children per chart. She denies making suicidal statements, "I just couldn't stand how I was feeling." She also denies hiding her medication from her as she was "just cleaning my computer desk and didn't want it out for the kids." She reports Ativan is helpful but she avoids taking it as "it's controlled" and also generally has to sleep/nap after. She has been hesitant to take Vistaril as had an anaphylactic reaction to a chemotherapeutic agent in the past during which continued to react with IV benadryl. She has been reassured by her primary care office as well as family/pharmacist. Physical Exam Psychiatric See admission H&P and DOD assessment. Vital Signs (Past 24 Hours) Last Vital Signs Temp 37.1 C 04/27/22 06:34 Pulse 97 H 07/22/22 06:35 Resp 18 04/27/22 06:34 BP 126/79 04/27/22 06:35 Pulse Ox 97 04/25/22 23:43 O2 Del Method 04/25/22 23:43 Principal Diagnosis Generalized anxiety disorder Psychiatric Data See daily stay summary. In short, safety was maintained and the patient was initially overwhelmed with functioning in the unit milieu, particularly given limited access to a mirror. She did not attend groups and signed a request to withdrawal from treatment soon after arrival to the unit despite extensive discussions around logistics with her makeup (long hx of focus on covering martha). She remained resistant to a trial of Vistaril but did accept Ativan 1 mg at bedtime for anxiety which was effective. Medication changes included titration of Zoloft to further trial and decrease in her Synthroid due to suppressed TSH. A family session was held and safety plan was completed prior to discharge. Day of Discharge Assessment Today the patient voices readiness for discharge. They note improvement in mood and deny thoughts to harm self or others. Thoughts remain organized and they are improved from admission. There is no evidence of psychosis. They agree to take mediations as prescribed and keep follow-up appointments. They are stable for discharge to outpatient level of care as she does not meet involuntary commitment criteria and family supports return home. Transition of Care Transition Of Care Record: was reviewed with the patient Advance Directives Advance Directives Information Provided: Yes Advance Directives: No Mental Health Advance Directive: No Advance Directives on File: No Living Will: No Power of Jalousie Installer: No Advance Directives Reason:: Declines as Mental Health Visit. Suicide Risk Level Suicide Risk Level Comments: Suicide risk at discharge is deemed low as the patient is no longer requiring 24-hr monitoring, has a safety plan, and is free of suicidal ideation at discharge. Risk Factors Assessment : Yes Do You Have Access To A Gun?: No Health Problems: Yes Mental Health Diagnoses: Yes Substance Use Disorders: No Previous Attempt: No Family History of Suicide: Yes (attempts) Previous Psychiatric Hospitalization: No Protective Factors Assessment : Yes Responsible for Young Children: Yes Employed: Yes (remote worker) Stable Relationships: Yes Tobacco Cessation at Discharge Tobacco Cessation Medication Prescribed at Discharge: Not Applicable/Non-Smoker Total Time Total Time Spent: Greater Than 30 Minutes Total Time Includes: Examination of the patient, Discharge Planning, Medication Reconciliation and Communication with other providers Discharge Data Lab Results 04/25/22 04/25/22 04/25/22 16:10 16:10 16:10 WBC 6.90 RBC 4.55 Hgb 14.4 Hct 41.4 MCV 91.0 MCH 31.6 MCHC 34.8 RDW Std Deviation 38.5 RDW Coeff of Doug 11.7 Plt Count 272 MPV 10.5 Immature Gran % (Auto) 0.1 Neut % (Auto) 62.6 Lymph % (Auto) 30.1 Sutter % (Auto) 6.2 Eos % (Auto) 0.3 Baso % (Auto) 0.7 Neut # (Auto) 4.31 Lymph # (Auto) 2.08 Sutter # (Auto) 0.43 Eos # (Auto) 0.02 Baso # (Auto) 0.05 Immature Gran # (Auto) 0.01 Sodium 139 Potassium 3.5 Chloride 106 Carbon Dioxide 25 Anion Gap 8 BUN 10 Creatinine 0.65 Est Cr Clr Drug Dosing 90.1 Est GFR ( Amer) 117.5 Est GFR (Non-Af Amer) 101.4 BUN/Creatinine Ratio 15.4 Glucose 108 H Calcium 9.6 Total Bilirubin 0.5 AST 14 ALT 10 Alkaline Phosphatase 66 Total Protein 7.1 Albumin 4.4 Globulin 2.7 Albumin/Globulin Ratio 1.6 TSH < 0.010 L Free T4 1.87 H Urine Color Urine Appearance Urine pH Ur Specific [place] Urine Protein Urine Glucose (UA) Urine Ketones Urine Blood Urine Nitrite Urine Bilirubin Urine Urobilinogen Ur Leukocyte Esterase Salicylates Urine Opiates Screen Ur Methadone, Qual Acetaminophen Urine Barbiturates Ur Phencyclidine (PCP) U Amphetamin/Meth Scrn MDMA (Ecstasy) Screen U Benzodiazepines Scrn Ur Cocaine Metabolite U Marijuana (THC) Screen Ethyl Alcohol mg/dL SARS-CoV-2, RNA, NAAT 04/25/22 04/25/22 04/25/22 16:10 16:10 16:27 WBC RBC Hgb Hct MCV MCH MCHC RDW Std Deviation RDW Coeff of Doug Plt Count MPV Immature Gran % (Auto) Neut % (Auto) Lymph % (Auto) Sutter % (Auto) Eos % (Auto) Baso % (Auto) Neut # (Auto) Lymph # (Auto) Sutter # (Auto) Eos # (Auto) Baso # (Auto) Immature Gran # (Auto) Sodium Potassium Chloride Carbon Dioxide Anion Gap BUN Creatinine Est Cr Clr Drug Dosing Est GFR ( Amer) Est GFR (Non-Af Amer) BUN/Creatinine Ratio Glucose Calcium Total Bilirubin AST ALT Alkaline Phosphatase Total Protein Albumin Globulin Albumin/Globulin Ratio TSH Free T4 Urine Color Urine Appearance Urine pH Ur Specific [place] Urine Protein Urine Glucose (UA) Urine Ketones Urine Blood Urine Nitrite Urine Bilirubin Urine Urobilinogen Ur Leukocyte Esterase Salicylates < 3.0 L Urine Opiates Screen Ur Methadone, Qual Acetaminophen < 3 L Urine Barbiturates Ur Phencyclidine (PCP) U Amphetamin/Meth Scrn MDMA (Ecstasy) Screen U Benzodiazepines Scrn Ur Cocaine Metabolite U Marijuana (THC) Screen Ethyl Alcohol mg/dL < 10.0 SARS-CoV-2, RNA, NAAT NEGATIVE 04/25/22 04/25/22 17:00 17:02 WBC RBC Hgb Hct MCV MCH MCHC RDW Std Deviation RDW Coeff of Doug Plt Count MPV Immature Gran % (Auto) Neut % (Auto) Lymph % (Auto) Sutter % (Auto) Eos % (Auto) Baso % (Auto) Neut # (Auto) Lymph # (Auto) Sutter # (Auto) Eos # (Auto) Baso # (Auto) Immature Gran # (Auto) Sodium Potassium Chloride Carbon Dioxide Anion Gap BUN Creatinine Est Cr Clr Drug Dosing Est GFR ( Amer) Est GFR (Non-Af Amer) BUN/Creatinine Ratio Glucose Calcium Total Bilirubin AST ALT Alkaline Phosphatase Total Protein Albumin Globulin Albumin/Globulin Ratio TSH Free T4 Urine Color Yellow Urine Appearance Clear Urine pH 6.0 Ur Specific [place] 1.020 Urine Protein Negative Urine Glucose (UA) Negative Urine Ketones Negative Urine Blood Negative Urine Nitrite Negative Urine Bilirubin Negative Urine Urobilinogen Negative Ur Leukocyte Esterase Negative Salicylates Urine Opiates Screen Neg Ur Methadone, Qual Neg Acetaminophen Urine Barbiturates Neg Ur Phencyclidine (PCP) Neg U Amphetamin/Meth Scrn Neg MDMA (Ecstasy) Screen Neg U Benzodiazepines Scrn Neg Ur Cocaine Metabolite Neg U Marijuana (THC) Screen Neg Ethyl Alcohol mg/dL SARS-CoV-2, RNA, NAAT Hospital Course (1) BOLA (generalized anxiety disorder): (2) Depressive disorder, not elsewhere classified: Plan 04/26/22: The patient was admitted to the [facility] (locked inpatient mental health unit) on q15 min checks (behavioral with suicide precautions) for safety. The patient will participate in group, recreational, and milieu therapies and will be offered additional individual and family sessions as clinically appropriate. 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 Mental Health & Subst Abuse Tx Psychiatrist Name of Psychiatrist: Poli Psychiatrist's Date of Appointment with Psychiatrist: 05/02/22 Time of Appointment with Psychiatrist: 9:10 AM Psychiatric Appointment Comment: This appointment will be in person for an intake with Ysabel. Therapist Name of Therapist: Margotjeffrey Therapist's Date of Therapist Appointment: 05/08/22 Time of Therapist Appointment: 10am Therapy Appointment Comment: via zoom- email with instructions to set up account Post Discharge Appointments Primary Care Physician Name Of Family Doctor: Pa Reyna [facility] Date of Appointment with PCP: 05/02/22 Time of Appointment with PCP: 9:20am Provider Appointment Comment: [id number] Smoking Cessation Counseling Tobacco Cessation Medication Prescribed at Discharge: Not Applicable/Non-Smoker Discharge Plan Discharge Items Patient Disposition: Home - Self-Care Reason For Visit: MDD Discharge Diagnosis: BOLA Activity: Resume your previous activity Non-emergency contact: Primary Care Provider, Psychiatrist and Therapist Call non-emergency contact if: you have any medication questions and your symptoms worsen Follow-up/Referrals: Pa Reyna III, CRNP [Primary Care Provider] - Diet: Regular Addtl Attending Provider Instructions: SPECIAL CARE INSTRUCTIONS: 1. Follow through with your scheduled aftercare appointments. If unable to keep an appointment, please call to reschedule. 2. Take your medication only as prescribed. Medication should not be changed or stopped without the approval of your doctor. In the event of worsening symptoms or concerns about side effects, contact your doctor immediately. 3. Utilize new healthy coping skills, anger management skills, and stress management skills learned during your hospitalization. Journal feelings and process them with a support person. Identify stressors or situations that may result in relapse, deterioration or inappropriate behaviors and develop a plan to deal with those issues. 4. If your coping skills are ineffective and you are in crisis, contact your outpatient providers for direction. If unable to reach your providers, please call the [facility] CRISIS LINE AT , go to the [facility] walk-in center at [address], [address], [place], or go to the closest Emergency Room. 5. Avoid alcohol and un-prescribed drugs. 6. You have been provided with the Mental Health Advance Directives Pamphlet for your review. 7. Your condition is stable for discharge to outpatient level of care, but recovery is an ongoing process. Ifthoughts to harm yourself or others return, follow the safety plan developed during your stay. Planning for a safe return home includes securing weapons. Our treatment team recommends weaponsbe removed from the home until your outpatient provider reassesses your progress. In rare cases where the items themselvescannot be removed, guns and ammunitionshould be secured separatelyand keys stored by a reliable personoutside of the home. If you were admitted on an involuntary commitment, the police or other legal authorities may be involved in this process. AFTERCARE APPOINTMENTS: * Please call your insurance company prior to your scheduled appointment to confirm your aftercare providers are covered. Take your insurance information to your appointments. WHO TO CALL AND WHEN: Medical Emergencies: For questions or emergencies related to your hospital stay, please contact the Inpatient Behavioral Health Unit at [phone]. A orthotic/prosthetic clinician is on-call 29/04 for the Behavioral Health Unit for emergencies At any time you feel your situation is an emergency, you may also call 911 immediately. Addtl Computer Engineering Technologist Provider Instructions: Your thyroid appears to be "overcorrected" so your Synthroid dose was decreased to 100 mcg in consultation with your PCP and the [facility] hospitalist. Your prescriber will be contacting endocrinology for additional input prior to your scheduled consultation. You will likely need your labs repeated in 6 weeks. Pending Studies at Discharge: No Stand-Alone Forms: My Intacct, Smoking Cessation Medications and DC Order Prescriptions: New tolterodine [Detrol LA] 2 mg Capsule,Extended Release 24hr 2 mg PO HS Qty: 1 0RF sertraline 100 mg Tablet 100 mg PO QAM 30 Days Qty: 30 0RF levothyroxine [Synthroid] 100 mcg Tablet 100 mcg PO DAILYBB 30 Days Qty: 30 0RF lorazepam [Ativan] 1 mg tablet 1 mg PO HS PRN (Reason: anxiety) Qty: 14 0RF Continued fluocinonide 0.05 % cream 1 applic topical BID Qty: 30 0RF Rx Instructions: Apply to areas of the neck twice daily for up to 2 weeks as needed for flaring. lorazepam 0.5 mg tablet 0.5 mg PO DAILY PRN (Reason: anxiety) Qty: 20 0RF cholecalciferol (vitamin D3) 125 mcg (5,000 unit) capsule 125 mcg PO DAILY Label Comments: Pt reports that she takes 1 (5000 IU) tab daily, over the counter Discontinued tolterodine 2 mg capsule,extended release 24hr 2 mg PO BID Qty: 180 3RF levothyroxine [Synthroid] 112 mcg tablet 112 mcg PO DAILY Qty: 90 3RF sertraline 50 mg tablet 50 mg PO DAILY Qty: 30 5RF hydroxyzine HCl 10 mg tablet 10 mg PO TID PRN (Reason: anxiety) Qty: 10 0RF Discharge Orders: Discharge Order (Routine); Ordered 04/27/22 Ordered By: Lorna Borden Admission Data Admit Date/Time: 04/25/22 22:54 Attending Provider: Lorna Borden Admit Provider: Lorna Borden Primary Care Provider: Pa Reyna III Other Interventions: PSY Interdisciplinary Discharge Planning Last Done: 04/27/22 10:10 Coding Level of Care Code 01932 D/C day mgmt > 30 min Diagnoses BOLA (generalized anxiety disorder) F41.1 Depressive disorder, not elsewhere classified F32.89
== END 2022-04-27 17:00 | disposition home or self-care (01) | DRG 880 ==
LOC: ED 15:36 → 3S 22:52